=== PATIENT | female | born 1980 | race Caucasian/White ===

== ENCOUNTER → 2017-11-15 | Outpatient (CLI) | payer OTHER ==
[2016-02-17 15:07] VITALS: BP 122/72
[2017-11-15 10:13] LABS: BASO % 1 % (0-3); EOS # 0.1 x10^3/uL (0.0-0.7); EOS % 2 % (0-3); HEMATOCRIT 43.9 % (36.0-47.0); HEMOGLOBIN 14.8 g/dL (12.0-15.5); LYMPH # 1.3 x10^3/uL (1.0-4.8); LYMPH % 29 % (24-48); MEAN CORPUSCULAR HEMOGLOBIN 31 pg (25-35); MEAN CORPUSCULAR HGB CONC 34 g/dL (31-37); MEAN CORPUSCULAR VOLUME 91 fL (79-100); MONO # 0.4 x10^3/uL (0.0-1.1); MONO % 9 % (0-9); NEUT # 2.6 x10^3uL (1.8-7.7); NEUT % 59 % (31-73); PLATELET COUNT 255 x10^3/uL (140-400); RED BLOOD COUNT 4.81 x10^6/uL (3.50-5.40); RED CELL DISTRIBUTION WIDTH 13.5 % (11.5-14.5); WHITE BLOOD COUNT 4.5 x10^3/uL (4.0-11.0)
[2017-11-15 10:36] LABS: ALBUMIN 4.5 g/dL (3.4-5.0); ALBUMIN/GLOBULIN RATIO 1.4 (1.0-1.7); CALCIUM 9.4 mg/dL (8.5-10.1); CREATININE 0.7 mg/dL (0.6-1.0); GFR 95.2; POTASSIUM 4.6 mmol/L (3.5-5.1); TOTAL BILIRUBIN 0.5 mg/dL (0.2-1.0); TOTAL PROTEIN 7.8 g/dL (6.4-8.2)
[2017-11-15 11:22] LABS: SEDIMENTATION RATE 2 (0-25)
[2017-11-16 11:22] LABS: FREE T4 0.95 ng/dL (0.76-1.46); THYROID STIM HORMONE (TSH) 1.3 uIU/mL (0.358-3.740)
== END | disposition home or self-care (01) ==
LOC: PMG 08:55
PROVIDERS: ATTEND Physician Assistant
DX: I34.1 Nonrheumatic mitral (valve) prolapse (principal); G47.00 Insomnia, unspecified; R61 Generalized hyperhidrosis
CPT/HCPCS: 36415; 80053; 84439; 84443; 85025; 85651; 86703

== ENCOUNTER → 2018-05-22 | Outpatient (CLI) | payer OTHER ==
[2016-02-17 15:07] VITALS: BP 122/72
--- NOTE | 2018-05-22 12:47 | RAD ---
DATE: 05/22/2018 EXAM: MAMMO JHONATAN CRISTI EATON, BREAST RIGHT HISTORY: Right breast lump COMPARISON: Baseline study This study was interpreted with the benefit of Computerized Aided Detection (CAD). The breast parenchyma is dense, which could reduce the sensitivity of mammography. Breast parenchyma level density D. FINDINGS: 2-D and 3-D tomosynthesis imaging was performed in CC and MLO projections. A BB was placed on the skin surface at the 4:00 location on the right over the area of palpable concern. The fibroglandular tissues are extremely dense and heterogeneous in a multinodular pattern. No spiculated mass or architectural distortion is identified. No suspicious microcalcifications are evident. Right breast ultrasound, 05/22/2018: A targeted ultrasound exam of the right breast was performed centered at the 4:00 location. At the 4:00 location, 6 cm from the nipple there is an oval-shaped smooth anechoic nodule compatible with a cyst. It measures 2.0 x 1.7 x 0.9 cm. There is good through transmission. No other abnormality is seen in this region. IMPRESSION: 1. Extremely dense breasts limiting the sensitivity of mammography. 2. The area of palpable concern in the right breast corresponds to a 2 cm simple cyst. BI-RADS CATEGORY: 2 BENIGN FINDING(S) RECOMMENDED FOLLOW-UP: CLIN FOLLOW UP IMAGING CLINICALLY INDICATED Mammography is a sensitive method for finding small breast cancers, but it does not detect them all and is not a substitute for careful clinical examination. A negative mammogram does not negate a clinically suspicious finding and should not result in delay in biopsying a clinically suspicious abnormality. "Our facility is accredited by the [employer] Mammography [employer]."
== END | disposition home or self-care (01) ==
LOC: MAMMO 11:19
PROVIDERS: ATTEND Family Medicine
DX: R92.8 Other abnormal and inconclusive findings on diagnostic imaging of breast (principal)
CPT/HCPCS: 76641; 77066; G0279; 77062

== ENCOUNTER 2019-05-03 10:31 | Emergency (ER) | payer OTHER ==
[~2019-05-03] VITALS: Ht 165.1 cm; Wt 54.4 kg
[2019-05-03] MEDS ORDERED: PENICILLIN G BENZATHINE LA 1,200,000 UNIT/2 ML DISP.SYRIN. IM ONE (11:30)
--- NOTE | 2019-05-03 11:30 | PHYS DOC ---
Past History Past Medical History: Other Past Surgical History: Cholecystectomy, , Other Alcohol Use: Occasionally Drug Use: None Adult General Chief Complaint Chief Complaint: FEVER HPI HPI 38-year-old female presents with sore throat. She has had an increasing sore throat for the last 4 days. She also had facial pain and left ear pain. It has gotten significantly worse since yesterday. She also feels like she has lymphadenopathy on that side. It is also painful to swallow both liquids and solids. She has had a fever up to 101. She does not have a fever on arrival to the ED. Review of Systems Review of Systems Constitutional: Denies fever or chills [] Eyes: Denies change in visual acuity, redness, or eye pain [] HENT: sore throat [] Respiratory: Denies cough or shortness of breath [] Cardiovascular: No additional information not addressed in HPI [] GI: Denies abdominal pain, nausea, vomiting, bloody stools or diarrhea [] : Denies dysuria or hematuria [] Musculoskeletal: Denies back pain or joint pain [] Integument: Denies rash or skin lesions [] Neurologic: Denies headache, focal weakness or sensory changes [] Endocrine: Denies polyuria or polydipsia [] All other systems were reviewed and found to be within normal limits, except as documented in this note. Allergies Allergies Allergies Coded Allergies Type Severity Reaction Last Updated Verified No Known Drug Allergies 02/17/16 No Physical Exam Physical Exam Constitutional: Well developed, well nourished, no acute distress, non-toxic appearance. [] HENT: Normocephalic, atraumatic, bilateral external ears normal, oropharynx erythematous with tonsillar exudates, nose normal. [] Eyes: PERRLA, EOMI, conjunctiva normal, no discharge. [] Neck: Normal range of motion, no tenderness, supple, no stridor. Anterior ce rvical lymphadenopathy on the left[] Cardiovascular:Heart rate regular rhythm, no murmur [] Lungs & Thorax: Bilateral breath sounds clear to auscultation [] Abdomen: Bowel sounds normal, soft, no tenderness, no masses, no pulsatile masses. [] Skin: Warm, dry, no erythema, no rash. [] Back: No tenderness, no CVA tenderness. [] Extremities: No tenderness, no cyanosis, no clubbing, ROM intact, no edema. [] Neurologic: Alert and oriented X 3, normal motor function, normal sensory functi on, no focal deficits noted. [] Psychologic: Affect normal, judgement normal, mood normal. [] Current Patient Data Vital Signs Vital Signs Date Time Temp Pulse Resp B/P (MAP) Pulse Ox O2 Delivery O2 Flow Rate FiO2 05/03/19 10:45 98.8 86 16 100 Room Air EKG EKG [] Radiology/Procedures Radiology/Procedures [] Course & Med Decision Making Course & Med Decision Making Pertinent Labs and Imaging studies reviewed. (See chart for details) Based on the history and exam, the patient appears to have strep pharyngitis. I will treat her. She has elected for Bicillin injection. She is stable for discharge at this time. [] Dragon Disclaimer Dragon Disclaimer This electronic medical record was generated, in whole or in part, using a voice recognition dictation system. Departure Departure: Impression: Primary Impression: Strep pharyngitis Disposition: HOME, SELF-CARE Condition: STABLE Referrals: UVALDO HUERTA (PCP) Patient Instructions: Strep Throat, [id number] EDWARD JAIMES DO May 03, 2019 11:30
[2019-05-03 11:52] VITALS: BP 118/63
== END 2019-05-03 11:52 | disposition home or self-care (01) ==
LOC: ER 10:31
DX: J02.0 Streptococcal pharyngitis (principal); B95.0 Streptococcus, group A, as the cause of diseases classified elsewhere; R59.1 Generalized enlarged lymph nodes; H92.02 Otalgia, left ear
CPT/HCPCS: 96372; 99283; J0561

== ENCOUNTER → 2019-06-02 | Outpatient (CLI) | payer OTHER ==
[2019-05-03 11:52] VITALS: BP 118/63
--- NOTE | 2019-06-02 15:21 | RAD ---
Examination: FOOT RIGHT 3V History: Second metatarsal pain for one week Comparison/Correlation: None Findings: Total 3 images of the right foot were obtained. Joint spaces are normal. No acute fracture or bony destruction. Soft tissues are unremarkable. No degenerative change. Impression: No acute process. Electronically signed by: Mervin Bryant MD (06/02/2019 3:18 PM) [id number]
== END | disposition home or self-care (01) ==
LOC: DXRAD 14:50
PROVIDERS: ATTEND Obstetrics & Gynecology
DX: M79.671 Pain in right foot (principal); R22.41 Localized swelling, mass and lump, right lower limb
CPT/HCPCS: 73630

== ENCOUNTER → 2019-10-02 | Outpatient (CLI) | payer OTHER ==
[2019-10-02 12:37] LABS: BASO % 1 % (0-3); EOS % 1 % (0-3); HEMATOCRIT 40.9 % (36.0-47.0); HEMOGLOBIN 13.7 g/dL (12.0-15.5); LYMPH # 1.6 x10^3/uL (1.0-4.8); LYMPH % 30 % (24-48); MEAN CORPUSCULAR HEMOGLOBIN 31 pg (25-35); MEAN CORPUSCULAR HGB CONC 33 g/dL (31-37); MEAN CORPUSCULAR VOLUME 92 fL (79-100); MONO # 0.3 x10^3/uL (0.0-1.1); MONO % 6 % (0-9); NEUT # 3.3 x10^3uL (1.8-7.7); NEUT % 62 % (31-73); PLATELET COUNT 271 x10^3/uL (140-400); RED BLOOD COUNT 4.45 x10^6/uL (3.50-5.40); RED CELL DISTRIBUTION WIDTH 12.9 % (11.5-14.5); WHITE BLOOD COUNT 5.3 x10^3/uL (4.0-11.0)
[2019-10-02 13:49] LABS: SEDIMENTATION RATE 1 (0-25)
== END | disposition home or self-care (01) ==
LOC: LAB 12:01
PROVIDERS: ATTEND Optometrist
DX: H57.11 Ocular pain, right eye (principal)
CPT/HCPCS: 36415; 85025; 85651; 86140

== ENCOUNTER → 2019-12-07 | Outpatient (CLI) | payer OTHER ==
--- NOTE | 2019-12-07 12:03 | RAD ---
CT LUMBAR SPINE WO CONTRAST Indication: Right-sided lumbar pain and radiculopathy for 8 days Technique: Noncontrast CT imaging was performed of the lumbar spine, multiplanar reconstruction images submitted. One or more of the following individualized dose reduction techniques were utilized for this examination: 1. Automated exposure control 2. Adjustment of the mA and/or kV according to patient size 3. Use of iterative reconstruction technique. Comparison: October 01, 2016 lumbar spine radiographs; CT abdomen pelvis exam 08/13/2012 Findings: Not fully included superiorly, there are again long spinal rods of the thoracic and lumbar spine, hooks on the left at the L2-3 and L1-2 levels and on the right at the L2-3 and T11-12 levels. There is also horizontal bar at the L1 level. Visualized hardware is intact. There is mild lumbar levoscoliosis centered near L3, also degree of thoracic dextroscoliosis which is not fully included. Lumbar vertebral body stature is unchanged compared with the previous CT exam, sulci and L5-S1 and minimally superiorly of L4 and L5. AP alignment is unchanged, negligible anterior spondylolisthesis L5-S1. There is again moderate to severe narrowing of the L5-S1 intervertebral disc space and to a lesser degree at L4-5, degree of interbody calcification at these levels greatest at L4-5 and also minimally at L3-4. There is degree of narrowing at more superior lumbar intervertebral disc spaces likely in part on developmental basis. There is artifact created by the hardware which segmentally obscures the thecal sac of the superior lumbar spine and inferior thoracic spine. No significant spinal stenosis identified on this nonmyelographic exam. There is disc osteophyte complex/osteophyte resulting in [id number] narrowing of the inferior right L4-5 neural foramen with contact of the undersurface exiting right L4 nerve root, not present on previous 2012 CT exam. There is also suggestion of a tiny protrusion in the right extraforaminal region at L4-5 near the undersurface of the extraforaminal right L4 nerve roots without significant displacement. There is multilevel facet degenerative change greatest L3-4 and L4-5. There is IUD. There is again hypodense lesion of the right adnexal region although probably somewhat larger estimated about 3.6 cm transverse by 4.9 cm AP versus previously about 3.6 cm transverse by about 4.3 cm AP. IMPRESSION: 1. There are thoracic and lumbar spinal rods, not fully included superiorly. There is S-shaped scoliosis of the thoracic and lumbar spine. 2. No significant lumbar spinal stenosis is identified on this nonmyelographic exam, limited evaluation of the thecal sac at more superior lumbar levels due to artifact created by hardware. 3. There is now mild to moderate narrowing of the right L4-5 neural foramen by disc osteophyte complex/osteophyte contacting the undersurface exiting right L4 nerve root, also probable small protrusion in the right extraforaminal region near the undersurface of the extraforaminal right L4 nerve root without displacement. 4. There is degenerative disc disease greatest at L4-5 and L5-S1, degree of narrowing at more superior lumbar levels likely on developmental basis. 5. There is persistent cystic lesion of the right adnexal region in the pelvis, probably slightly larger Electronically signed by: Lars Sibley MD (12/07/2019 12:00 PM) [id number]
== END | disposition home or self-care (01) ==
LOC: CT 10:49
PROVIDERS: ATTEND Family Medicine
DX: M48.061 Spinal stenosis, lumbar region without neurogenic claudication (principal); M51.17 Intervertebral disc disorders with radiculopathy, lumbosacral region; M41.86 Other forms of scoliosis, lumbar region; M41.84 Other forms of scoliosis, thoracic region; Z97.5 Presence of (intrauterine) contraceptive device
CPT/HCPCS: 72131

== ENCOUNTER 2020-04-29 09:23 | Emergency (ER) | payer OTHER ==
[~2020-04-29] VITALS: Ht 165.1 cm; Wt 54.5 kg
[2020-04-29] MEDS ORDERED: methylPREDNISolone SOD SUCC PF 125 MG/2 ML VIAL. IV ONE (09:45)
[2020-04-29] MEDS ORDERED: IV NORMAL SALINE 1,000ML 1,000 ML IV ONE (09:45)
[2020-04-29] MEDS ORDERED: ORPHENADRINE CITRATE 60 MG/2 ML VIAL. IV ONE (09:45)
[2020-04-29] MEDS ORDERED: MORPHINE SULFATE 4 MG/ML DISP.SYRIN. IV ONE (09:45)
[2020-04-29] MEDS ORDERED: ONDANSETRON PF 4 MG/2 ML VIAL. IVP ONE (09:45)
--- NOTE | 2020-04-29 09:55 | PHYS DOC ---
Past History Past Medical History: Other Additional Past Medical Histor: scoliosis, mitral valve prolapse Past Surgical History: Cholecystectomy, , Other Additional Past Surgical Histo: back surgery, hip surgery Alcohol Use: Occasionally Drug Use: None General Adult EDM: Chief Complaint: BACK INJURY HPI: HPI: 39-year-old female presents with low back pain. 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 She was bending over to lift the foot rest of a wheelchair when she felt a twinge in her back. Over few minutes after standing up, she developed worsening right-sided low back pain which also involves her right buttocks and goes down her right posterior leg. The back pain is a deep and cramping sensation of moderate intensity. She states that her leg feels heavy but denies numbness or tingling. Patient has a history of scoliosis and has significant fusion with rods throughout her thoracic and lumbar spine. She had a CT in November of this year that showed foramen narrowing in the L4-L5 region on the right. Review of Systems: Review of Systems: Constitutional: Denies fever or chills Eyes: Denies change in visual acuity HENT: Denies nasal congestion or sore throat Respiratory: Denies cough or shortness of breath Cardiovascular: Denies chest pain or edema GI: Denies abdominal pain, nausea, vomiting, bloody stools or diarrhea : Denies dysuria Musculoskeletal: Low back pain with radiation down the right buttocks and right leg Integument: Denies rash Neurologic: Denies headache, focal weakness or sensory changes Endocrine: Denies polyuria or polydipsia Lymphatic: Denies swollen glands Psychiatric: Denies depression or anxiety Heart Score: Risk Factors: Risk Factors: DM, Current or recent (<one month) smoker, HTN, HLP, family history of CAD, obesity. Risk Scores: Score 0 - 3: 2.5% MACE over next 6 weeks - Discharge Home Score 4 - 6: 20.3% MACE over next 6 weeks - Admit for Clinical Observation Score 7 - 10: 72.7% MACE over next 6 weeks - Early Invasive Strategies Current Medications: Current Meds: Current Medications Medications (Trade) Dose Ordered Sig/Graciela Start Time Stop Time Status Last Admin Dose Admin Methylprednisolone Sodium Succinate (SOLU-Medrol 125MG VIAL) 125 mg 1X ONCE 04/29/20 09:45 04/29/20 09:46 UNV Morphine Sulfate (Morphine 4mg Syringe) 4 mg 1X ONCE 6/19/20 09:45 04/29/20 09:46 UNV Ondansetron HCl (Zofran) 4 mg 1X ONCE 04/29/20 09:45 04/29/20 09:46 UNV Orphenadrine Citrate (Norflex) 60 mg 1X ONCE 04/29/20 09:45 04/29/20 09:46 UNV Sodium Chloride 1,000 ml @ 1,000 mls/hr 1X ONCE 04/29/20 09:45 04/29/20 10:44 UNV Allergies: Allergies: Allergies Coded Allergies Type Severity Reaction Last Updated Verified No Known Drug Allergies 04/29/20 No Physical Exam: PE: Constitutional: Well developed, well nourished, no acute distress, non-toxic appearance. [] HENT: Normocephalic, atraumatic, bilateral external ears normal, oropharynx moist, no oral exudates, nose normal. [] Eyes: PERRLA, EOMI, conjunctiva normal, no discharge. [] Neck: Normal range of motion, no tenderness, supple, no stridor. [] Cardiovascular:Heart rate regular rhythm, no murmur [] Lungs & Thorax: Bilateral breath sounds clear to auscultation [] Abdomen: Bowel sounds normal, soft, no tenderness, no masses, no pulsatile masses. [] Skin: Warm, dry, no erythema, no rash. [] Back: Large surgical scar of the central back, muscle spasm and tenderness of the lower lumbar paraspinal muscles, tenderness over the right piriformis distribution. [] Extremities: No tenderness, no cyanosis, no clubbing, ROM intact, no edema. [] Neurologic: Alert and oriented X 3, normal motor function, normal sensory function, no focal deficits noted. [] Psychologic: Affect normal, judgement normal, mood normal. [] Current Patient Data: Vital Signs: Vital Signs Date Time Temp Pulse Resp B/P (MAP) Pulse Ox O2 Delivery O2 Flow Rate FiO2 04/29/20 09:34 98.4 93 18 130/72 (91) 100 Room Air EKG: EKG: [] Radiology/Procedures: Radiology/Procedures: [] Course & Med Decision Making: Course & Med Decision Making Pertinent Labs and Imaging studies reviewed. (See chart for details) For her pain I am giving her 4 mg of Zofran, 4 mg of morphine, 60 mg of Norflex and a liter of normal saline. This appears to be reflex spasm from tweaking the nerve root. Her mechanism is nontraumatic and I do not suspect any bony change. I think she just got the right position to irritate the nerve and has reflex spasm. The patient's pain has improved to a 3 out of 10 at this time. She would like to go home. We will discharge her on Flexeril and 3 more days of prednisone 50 mg. She is stable for discharge at this time. [] Dragon Disclaimer: Dragon Disclaimer: This electronic medical record was generated, in whole or in part, using a voice recognition dictation system. Departure Departure: Impression: Primary Impression: Strain of lumbar paraspinal muscle Qualified Codes: S39.012A - Strain of muscle, fascia and tendon of lower back, initial encounter Additional Impression: Sciatica of right side Disposition: HOME/RESIDENCE PRIOR TO ADM Condition: IMPROVED Referrals: UVALDO HUERTA (PCP) Patient Instructions: Low Back Strain with Rehab-Sports[facility], Sciatica, [id number]-pk-Vpda Scripts Prednisone (PREDNISONE) 50 Mg Tablet 1 TAB PO DAILY for sciatica for 3 Days, #3 TAB start 04/30/2020 Prov: EDWARD JAIMES DO 04/29/20 Cyclobenzaprine Hcl (CYCLOBENZAPRINE HCL) 10 Mg Tablet 1 TAB PO TID PRN for MUSCLE SPASMS, #30 TAB Prov: EDWARD JAIMES DO 04/29/20 Justification of Admission: Justification of Admission: Justification of Admission Dx: N/A EDWARD JAIMES DO Apr 29, 2020 09:55
[2020-04-29] MEDS ORDERED: PRED50TA PO (10:43)
[2020-04-29] MEDS ORDERED: CYCL-331 PO (10:43)
[2020-04-29 11:05] VITALS: BP 124/69
== END 2020-04-29 11:08 | disposition home or self-care (01) ==
LOC: ER 09:23
DX: S39.012A Strain of muscle, fascia and tendon of lower back, initial encounter (principal); M54.41 Lumbago with sciatica, right side; Z90.49 Acquired absence of other specified parts of digestive tract; Z98.890 Other specified postprocedural states; X50.9XXA Other and unspecified overexertion or strenuous movements or postures, initial encounter; Y93.89 Activity, other specified; Y92.89 Other specified places as the place of occurrence of the external cause; Y99.8 Other external cause status
CPT/HCPCS: 96374; 96375; 99285; J2270; J2360; J2405; J2930; J7030

== ENCOUNTER → 2020-05-25 | Outpatient (CLI) | payer OTHER ==
[2020-04-29 11:05] VITALS: BP 124/69
[~2020-05-25] MED LIST: CYCL-331 PO; PRED50TA PO
== END | disposition home or self-care (01) ==
LOC: LAB 13:13
PROVIDERS: ATTEND Internal Medicine Cardiovascular Disease
DX: Z20.828 Contact with and (suspected) exposure to other viral communicable diseases (principal)
CPT/HCPCS: 36415; U0003-CS

== ENCOUNTER → 2020-06-01 | Outpatient (CLI) | payer OTHER | END | disposition home or self-care (01) | LOC: LAB 11:06 | PROVIDERS: ATTEND Internal Medicine Cardiovascular Disease | DX: Z20.828 Contact with and (suspected) exposure to other viral communicable diseases (principal) | CPT/HCPCS: C9803; U0003; 36415 ==

== ENCOUNTER → 2020-08-15 | Outpatient (CLI) | payer OTHER | END | disposition home or self-care (01) | LOC: LAB 07:57 | PROVIDERS: ATTEND Internal Medicine Cardiovascular Disease | DX: Z20.828 Contact with and (suspected) exposure to other viral communicable diseases (principal) | CPT/HCPCS: U0003-CS ==

== ENCOUNTER → 2020-10-25 | Outpatient (CLI) | payer OTHER | LOC: LAB 12:12 | PROVIDERS: ATTEND Internal Medicine Cardiovascular Disease | DX: R51.9 Headache, unspecified (principal); Z20.828 Contact with and (suspected) exposure to other viral communicable diseases | CPT/HCPCS: 87426; U0003 ==

== ENCOUNTER → 2020-10-31 | Outpatient (CLI) | payer OTHER | LOC: LAB 08:13 | PROVIDERS: ATTEND Internal Medicine Cardiovascular Disease | DX: R51.9 Headache, unspecified (principal); Z20.828 Contact with and (suspected) exposure to other viral communicable diseases | CPT/HCPCS: U0003 ==

== ENCOUNTER → 2020-12-23 | Outpatient (CLI) | payer OTHER ==
--- NOTE | 2020-12-23 11:09 | RAD ---
DATE: 12/23/2020 10:08 AM EXAM: MAMMO JHONATAN SCREENING BILATERAL HISTORY: Screening COMPARISON: 05/22/2018 Bilateral CC and MLO views of the breasts were performed. Bilateral breast tomosynthesis was performed in CC and MLO projections. This study was interpreted with the benefit of Computerized Aided Detection (CAD). FINDINGS: Breast Density: DENSE The breast Parenchyma is dense, which could reduce the sensitivity of mammography. Breast parenchyma level density D. No suspicious masses, microcalcifications or architectural distortion is present to suggest malignancy in either breast. The visualized axillae are unremarkable. IMPRESSION: No mammographic evidence of malignancy. BI-RADS CATEGORY: 1 NEGATIVE RECOMMENDED FOLLOW-UP: 12M 12 MONTH FOLLOW-UP Annual screening mammography is recommended, unless clinically indicated sooner based on symptoms or change in physical exam. PQRS compliance statement: Patient information was entered into a reminder system with a target due date for the next mammogram. Mammography is a sensitive method for finding small breast cancers, but it does not detect them all and is not a substitute for careful clinical examination. A negative mammogram does not negate a clinically suspicious finding and should not result in delay in biopsying a clinically suspicious abnormality. "Our facility is accredited by the [employer] Mammography Program."
== END ==
LOC: MAMMO 09:38
PROVIDERS: ATTEND Physician Assistant
DX: Z12.31 Encounter for screening mammogram for malignant neoplasm of breast (principal)
CPT/HCPCS: 77063; 77067

== ENCOUNTER → 2021-02-27 | Outpatient (CLI) | payer OTHER ==
[~2021-02-27] MED LIST changes: +IOHEXOL 240 MG/ML 50ML VIAL. ONE; +IOHEXOL 300 MG/ML 75 ML VIAL. IV ONE
[2021-02-27 14:37] LABS: BASO # 0.1 x10^3/uL (0.0-0.2); BASO % 1 % (0-3); EOS # 0.1 x10^3/uL (0.0-0.7); EOS % 1 % (0-3); HEMATOCRIT 40.5 % (36.0-47.0); HEMOGLOBIN 13.5 g/dL (12.0-15.5); LYMPH % 32 % (24-48); MEAN CORPUSCULAR HEMOGLOBIN 31 pg (25-35); MEAN CORPUSCULAR HGB CONC 33 g/dL (31-37); MEAN CORPUSCULAR VOLUME 92 fL (79-100); MONO # 0.4 x10^3/uL (0.0-1.1); MONO % 7 % (0-9); NEUT # 3.5 x10^3uL (1.8-7.7); NEUT % 58 % (31-73); PLATELET COUNT 256 x10^3/uL (140-400); RED BLOOD COUNT 4.39 x10^6/uL (3.50-5.40); RED CELL DISTRIBUTION WIDTH 13.2 % (11.5-14.5)
[2021-02-27 14:40] LABS: CALCIUM 8.8 mg/dL (8.5-10.1); CREATININE 0.8 mg/dL (0.6-1.0); GFR 79.9; POTASSIUM 3.7 mmol/L (3.5-5.1)
[2021-02-27 14:46] LABS: ALBUMIN 4.2 g/dL (3.4-5.0); ALBUMIN/GLOBULIN RATIO 1.3 (1.0-1.7); TOTAL BILIRUBIN 0.6 mg/dL (0.2-1.0); TOTAL PROTEIN 7.4 g/dL (6.4-8.2)
--- NOTE | 2021-02-27 15:37 | RAD ---
EXAM: Abdomen and pelvis CT with intravenous contrast. HISTORY: Pain. TECHNIQUE: Computed tomographic images of the abdomen and pelvis were obtained following the administ ration of intravenous contrast. Multiplanar reformatting was performed. *One or more of the following individualized dose reduction techniques were utilized for this examina tion: 1. Automated exposure control. 2. Adjustment of the mA and/or kV according to patient size. 3. Use of iterative reconstruction technique. COMPARISON: None. FINDINGS: Evaluation of the lower thorax demonstrates left lower lobe atelectasis. The heart is ethan l in size. There is fatty infiltration of the liver along the falciform ligament. There is biliary du ctal dilatation likely due to reservoir effect status post cholecystectomy. The pancreas, spleen and adrenal glands are unremarkable. There is a small simple appearing cyst within the upper pole the rig ht kidney. There is a suspected 2 mm nonobstructing stone within the lower pole the left kidney. There is no appendicitis. There is moderate colonic stool. There is a small fat-containing umbilical hernia. There is no evidence of bowel obstruction. There is an IUD within the endometrial cavity. The re are multiple bilateral ovarian follicles with a dominant left ovarian follicle/follicular cyst keren suring 2.7 cm. There is a small amount of pelvic free fluid. The aorta is normal in caliber. There is no lymphadenopathy. There is instrumented thoracolumbar fusion. There is degenerative endplate remod eling and Schmorl's node formation at the lower lumbar levels. There is grade 1 anterolisthesis at L5 -S1. IMPRESSION: 1. 2.7 cm dominant left ovarian follicle/follicular cyst and small amount of pelvic free fluid. 2. Moderate colonic stool. 3. Tiny nonobstructing left renal stone and small simple appearing right renal cyst. Follow up is not routinely performed for simple cysts. 4. Thoracolumbar fusion and lower lumbar spine degenerative change. Electronically signed by: Renetta Lechuga MD (02/27/2021 3:34 PM) [id number]
== END ==
LOC: CT 14:07
PROVIDERS: ATTEND Nurse Practitioner Family
DX: N20.0 Calculus of kidney (principal); N83.292 Other ovarian cyst, left side; M47.816 Spondylosis without myelopathy or radiculopathy, lumbar region
CPT/HCPCS: 36415; 74177; 80053; 85025; Q9967

== ENCOUNTER → 2021-06-21 | Outpatient (CLI) | payer OTHER ==
[~2021-06-21] MED LIST changes: -IOHEXOL 240 MG/ML 50ML VIAL. ONE; -IOHEXOL 300 MG/ML 75 ML VIAL. IV ONE
[2021-06-21 07:45] LABS: BASO # 0.1 x10^3/uL (0.0-0.2); BASO % 3 % (0-3); EOS # 0.1 x10^3/uL (0.0-0.7); EOS % 2 % (0-3); HEMATOCRIT 43.5 % (36.0-47.0); HEMOGLOBIN 14.6 g/dL (12.0-15.5); LYMPH # 1.5 x10^3/uL (1.0-4.8); LYMPH % 33 % (24-48); MEAN CORPUSCULAR HEMOGLOBIN 31 pg (25-35); MEAN CORPUSCULAR HGB CONC 34 g/dL (31-37); MEAN CORPUSCULAR VOLUME 92 fL (79-100); MONO # 0.3 x10^3/uL (0.0-1.1); MONO % 7 % (0-9); NEUT # 2.6 x10^3uL (1.8-7.7); NEUT % 56 % (31-73); PLATELET COUNT 316 x10^3/uL (140-400); RED BLOOD COUNT 4.75 x10^6/uL (3.50-5.40); RED CELL DISTRIBUTION WIDTH 13.2 % (11.5-14.5); WHITE BLOOD COUNT 4.6 x10^3/uL (4.0-11.0)
[2021-06-21 08:16] LABS: ALBUMIN 4.5 g/dL (3.4-5.0); ALBUMIN/GLOBULIN RATIO 1.3 (1.0-1.7); CALCIUM 9.1 mg/dL (8.5-10.1); CREATININE 0.8 mg/dL (0.6-1.0); GFR 79.9; POTASSIUM 4.3 mmol/L (3.5-5.1); TOTAL BILIRUBIN 1.1 mg/dL (0.2-1.0); TOTAL PROTEIN 7.9 g/dL (6.4-8.2)
[2021-06-21 19:21] LABS: THYROID STIM HORMONE (TSH) 2.175 uIU/mL (0.358-3.740)
[2021-06-21 22:11] LABS: ESTRADIOL LEVEL 170.5 pg/mL (.); FSH 3.6 mIU/mL (.); LUTEINIZING HORMONE 4.2 mIU/mL (.)
[2021-06-22 02:07] LABS: HEMOGLOBIN A1C 5.5 % (4.8-5.6)
== END ==
LOC: LAB 07:21
PROVIDERS: ATTEND Nurse Practitioner Women's Health
DX: Z01.419 Encounter for gynecological examination (general) (routine) without abnormal findings (principal)
CPT/HCPCS: 36415; 80053; 80061; 82670; 83001; 83002; 83036; 84443; 85025

== ENCOUNTER → 2021-06-30 | Outpatient (CLI) | payer OTHER | LOC: LAB 12:42 | PROVIDERS: ATTEND Internal Medicine Cardiovascular Disease | DX: U07.1 COVID-19 (principal) | CPT/HCPCS: U0003 ==

== ENCOUNTER → 2021-12-13 | Outpatient (CLI) | payer OTHER ==
[~2021-12-13] MED LIST changes: -CYCL-331 PO; +CYCL10TA19 PO; +IOHEXOL 350 MG/ML 100 ML VIAL. IV ONE
--- NOTE | 2021-12-13 10:02 | RAD ---
CT arteriogram of the chest with contrast HISTORY: Short of breath, post Covid CT arteriogram of the chest was done using 100 mL Omnipaque contrast. Coronal MIP images were reconst ructed. There are rods in the spine for scoliosis which create artifact. Thyroid is homogeneous. Ther e is no mediastinal adenopathy. Visualized portions of the liver and spleen are unremarkable. There i s scarring or atelectasis along the fissure in the left lung. No other infiltrates are noted. This st udy is negative for a pulmonary embolus. IMPRESSION: 1. Negative for a pulmonary embolus 2. No infiltrates noted. 3. Previous spinal fusion for scoliosis. PQRS Compliance Statement: One or more of the following individualized dose reduction techniques were utilized for this examinat ion: 1. Automated exposure control 2. Adjustment of the mA and/or kV according to patient size 3. Use of iterative reconstruction technique Electronically signed by: Dawson Avalso MD (12/13/2021 9:59 AM) [id number]
== END ==
LOC: CT 09:19
PROVIDERS: ATTEND Physician Assistant Medical
DX: R06.02 Shortness of breath (principal); R07.9 Chest pain, unspecified; Z98.1 Arthrodesis status
CPT/HCPCS: 71275; Q9967